=== PATIENT | female | born 1980 | race Caucasian/White ===

== ENCOUNTER 2019-01-09 12:39 | Day surgery (SDC) | payer OTHER, MEDICAID, SELFPAY ==
[2018-12-30 12:37] VITALS: BMI 33.1
--- NOTE | 2019-01-09 | PATH_ITS ---
[facility] Accession Number: [id number] . 01 Material submitted: . PART A: cervix - LEEP PART B: endocervix - ENDOCERVICAL CURRETTINGS . 02 Diagnosis: A. 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 Area of invasive adenocarcinoma measures up to 0.3 cm in depth. Invasive adenocarcinoma and in situ adenocarcinoma both involve the deep inked excisional margin and also the endocervical inked excisional margin. Negative for evidence of vascular invasion. . B. Endocervical Curettings: Single minute fragment of endocervical adenocarcinoma in situ. Multiple fragments of squamous epithelium with changes of high-grade squamous intraepithelial lesion (SHANNAN-2). Fragments of endocervical epithelium, negative for atypia. . . COMMENT: This case was reviewed by Drs. Brambila, Kaleigh, and Emi, all of whom agree with the diagnosis. . The results of this evaluation are telephoned to the office of Dr. Gail Glynn on 01/12/2019. MRV/01/12/2019 . 02 Electronically signed: . Chris Reilly MD, Pathologist NPI- [id number] . 01 Gross description: . (A) Received in formalin, labeled LEEP, is an unoriented flat cervical LEEP excision (diameter-2.5 x 2.1 cm, 0.3 cm in depth) with skelton-pink smooth shiny mucosa. No nodules, masses or lesion are identified. The apparent endocervical margin is inked orange and the ectocervical and stromal margins are inked blue. Radially sectioned and entirely submitted in cassettes A1-A4. (B) Received in formalin, labeled ECC, is turbid mucoid material containing multiple fragments of skelton-hernández tissue (2.5 x 2.1 by less than 0.1 cm in aggregate). Filtered and entirely submitted in cassette B1. ([id number]) /MRV . 02 Microscopic: . Sections from part A are LEEP biopsy of the cervix. In one of the sections there is a large area measuring 0.9 cm in length and 0.3 cm in depth, which consists of increased numbers of endocervical glands lined by malignant-appearing epithelial cells which are pseudostratified with hyperchromatic nuclei. These changes are those of adenocarcinoma in situ, but there are also areas in which the glands are very confluent and have illicited some desmoplastic reaction consistent with invasive endocervical adenocarcinoma. The area of distinct invasion as well as in situ adenocarcinoma extend to the deep inked margin of the biopsy and also to the endocervical inked margin. The squamous epithelium within the biopsy shows no evidence of true squamous epithelial dysplasia. . Sections from part B are of endocervical curettings. There are multiple fragments of squamous epithelium with changes of high-grade squamous intraepithelial lesion (SHANNAN-2). There is also a single fragment of endocervical glandular epithelium consistent with adenocarcinoma in situ. Other fragments of endocervical epithelium which are negative for atypia are also present. . 02 Pathologist provided ICD-10: C53.0 . 02 CPT . 050236, [id number] Performed at: 01 [facility] [address] [id number] MD Rigo Amezcua MD Phone: [phone] Performed at: 02 [facility] [address] [address] [place] [id number] MD Leilani Middleton MD Phone: [phone]
--- NOTE | 2019-01-09 12:50 | SUR.OPER ---
Lithotomy on padded OR bed, head on pillow, arms secured on padded arm boards at <90 degrees abduction. Legs secured in padded yellow fins stirrups.
[2019-01-09 13:02] VITALS: BP 97/74; PULSE 87; RESP 16; TEMP 36.1; O2SAT 95; BMI 32.2
--- NOTE | 2019-01-09 13:09 | PM.PREOP ---
Pre-operative Note Interval Note History & Physical reviewed/Exam performed by Physician: Yes Changes to H&P: No
--- NOTE | 2019-01-09 13:10 | PM.GYNHP.1 ---
History of Present Illness Reason for admission: other (SHANNAN 2 of the cervix) Narrative: Beth Hardin is a 38 year old female here for LEEP procedure [facility] Medical History (Updated 01/09/19 @ 13:12 by Gail Glynn MD) Asthma (Acute) Mass of chest wall, right (Acute) [place] teeth removed (Acute) Surgical History (Updated 12/30/18 @ 12:40 by Mary Song RN) History of colposcopy (Acute) Status post tonsillectomy and adenoidectomy Family History (Updated 10/17/15 @ 00:00 by Conversion Provider) Mother Age: 67 Fibromyalgia Diabetes mellitus Degenerative disc disease Social History Smoking Status: Current every day smoker Family History (Updated 10/17/15 @ 00:00 by Conversion Provider) Mother Age: 67 Fibromyalgia Diabetes mellitus Degenerative disc disease Social History Smoking Status: Current every day smoker Meds Home Medications Medication Instructions Recorded Confirmed Type fluticasone propionate 1 spray INTRANASAL QDAY #16 gm 10/01/17 12/30/18 Rx albuterol sulfate [Ventolin HFA] 1 puff INH QID #2 ea 11/09/17 12/30/18 Rx metoclopramide HCl 10 mg PO TIDAC #20 tab 12/27/17 12/30/18 Rx dexamethasone 8 mg PO Q6H #8 tab 01/07/18 12/30/18 Rx nortriptyline 25 mg capsule 50 mg PO BEDTIME #60 cap 09/07/18 12/30/18 Rx medroxyprogesterone 10 mg tablet 10 mg PO .COMPLEX #30 tab 10/28/18 12/30/18 Rx dextroamphetamine-amphetamine ER See Rx Instructions PO QAM #60 cap 11/28/18 12/30/18 Rx 30 mg 24hr capsule,extend release lorazepam 1 mg tablet 1 mg PO .QDP #30 tab 11/28/18 12/30/18 Rx lamotrigine 100 mg tablet 300 mg PO DAILY #90 tab 12/30/18 12/30/18 Rx lithium carbonate 300 mg capsule 600 mg PO BEDTIME #60 cap 12/30/18 12/30/18 Rx ondansetron [Zofran ODT] 8 mg SUBLINGUAL Q6HP PRN 12/30/18 12/30/18 History Allergies Allergy/AdvReac Type Severity Reaction Status Date / Time amoxicillin [AMOXICILLIN] AdvReac Unknown Verified 01/09/19 12:53 codeine [CODEINE] AdvReac Unknown Verified 01/09/19 12:53 Review of Systems Review of Systems All systems reviewed & are unremarkable except as noted in HPI and below Exam Narrative Exam Narrative: HEENT exam within normal limits. Lungs are clear to auscultation percussion. Heart is regular rate and rhythm no S3-S4 or murmurs. Abdomen is soft nontender. pelvic exam performed less than 1 month was not repeated. At that exam she had normal external genitalia, vagina, cervix. Uterus was not enlarged and nontender. No adnexal masses or tenderness. Exam will be repeated under anesthesia. Extremities without edema and nontender. Assessment & Plan (1) SHANNAN II (cervical intraepithelial neoplasia II): Current visit: Yes Status: Acute Assessment & Plan narrative: Patient with SHANNAN 2 on ECC performed on 12/08/2018. LEEP procedure is planned. Consent form was reviewed with the patient, risks discussed with the patient consent form signed and questions answered. Time Spent With Patient Time with patient: less than 15 minutes
[2019-01-09] MEDS: LACTATED RINGERS 1,000 ML 100 ML IV (13:20)
[2019-01-09] MEDS: BUPIVACAINE 0.5% W/ EPI (PF) VIAL 30 ML INJ (13:50)
[2019-01-09 14:01] VITALS: BP 116/76; PULSE 85; RESP 17; TEMP 36.5; O2SAT 95
[2019-01-09 14:02] VITALS: BP 111/69; PULSE 81; RESP 12; O2SAT 95
--- NOTE | 2019-01-09 14:06 | PM.OP.1 ---
Operative Date/Time/Diagnoses Date of procedure: 01/09/19 Time of procedure: 14:06 Pre-op diagnosis: SHANNAN-III of cervix by colpo directed biopsies Post-op diagnosis: same Procedure & Clinicians Procedure: LEEP procedure Same procedure as scheduled: Yes Indications: SHANNAN 2 of the cervix on ECC Surgeon: Gail Glynn Click Yes if Unassisted: Yes Anesthesia Type: General Operative Notes Findings: Normal exam under anesthesia. No areas of nonstaining with Lugol seen externally Closure Type: not applicable Specimen(s): other (LEEP cone and ECC) Estimated Blood Loss (mL): 1 Blood products transfused: none Procedure in detail: Patient was brought to the operating room she underwent general. She was placed in low stirrups. A coated bivalve speculum was placed into the vagina. The cervix was injected with 0.5% Marcaine with epinephrine. A coated single-tooth tenaculum was placed on the anterior lip of the cervix. The cervix was stained with Lugol's. The loop set at 60 W of cutting was used to remove the entire squamocolumnar junction. An ECC was performed.. The cervix was cauterized external to the LEEP with ball cautery to extend the treatment zone. The patient went to recovery room in good condition. Counts of instruments and sponges were correct. The tissue was sent for pathology. Complications: none Condition: stable Disposition: same day surgery Plan for aftercare: Follow-up in 2 weeks treatment and follow-up based on biopsy results
[2019-01-09 14:07] VITALS: BP 114/74; PULSE 74; RESP 11; O2SAT 100
[2019-01-09] MEDS: ACETAMINOPHEN 325 MG TABLET 650 MG PO (14:10)
--- NOTE | 2019-01-09 14:13 | SUR.PHASEI ---
Pt c/o paion in vagina, wanting plain tylenol, Dr Villagomez in room, verbal order obtained, pt medicated. Pain rated 2/10.
[2019-01-09 14:16] VITALS: BP 114/69; PULSE 79; RESP 12; TEMP 36.6; O2SAT 99
[2019-01-09 14:33] VITALS: BP 106/74; PULSE 70; RESP 16; TEMP 36.2; O2SAT 94
[2019-01-09] MEDS: POTASSIUM IODIDE/IODINE 473 ML SOLUTION TOP (14:43)
--- NOTE | 2019-01-09 14:47 | SUR.PHASEII ---
Pt ready to go, dressed with assist of friend Jo. Small amount bloody drainage when pt got upright. No further drainage. Pt left unit in stable condition.
== END 2019-01-09 14:50 | disposition home or self-care (01) ==
PROVIDERS: Visit Provider Specialist
PROC: 0UBC7ZZ Excision of Cervix, Via Natural or Artificial Opening (ICD-10-PCS; CPT 57522; principal; 2019-01-09 13:30)
DX: C53.0 Malignant neoplasm of endocervix (principal); J45.909 Unspecified asthma, uncomplicated; F17.210 Nicotine dependence, cigarettes, uncomplicated
CPT/HCPCS: 57522; J1100; J1885; J2704; J3010